=== PATIENT | female | born 1930 | race Caucasian/White ===

== ENCOUNTER 2017-05-23 13:54 | Outpatient (CLI) | payer SELFPAY ==
[~2017-05-23 13:54] MED LIST: ALLO100T PO; HYDR-565 PO; LEVO25TA2 PO; LISI10TA4 PO
== END 2017-05-23 23:59 | disposition home or self-care (01) ==
LOC: HW VAS 13:54
DX: Z00.00 Encounter for general adult medical examination without abnormal findings (principal)

== ENCOUNTER 2019-02-20 19:01 | Inpatient (IN) | payer MEDICARE, BC, MEDICAID ==
[~2019-02-20] VITALS: Ht 160 cm; Wt 81.0 kg
[~2019-02-20 19:01] MED LIST changes: +HYDR-4353 PO; -HYDR-565 PO
[2019-02-20 20:18] LABS: PARTIAL THROMBOPLASTIN TIME 31 SECONDS (22-32)
[2019-02-20 20:20] LABS: BASOPHILS % (AUTO) 0.2 % (0-1); EOSINOPHILS # (AUTO) 0.2 X10'3 (0-0.9); HEMATOCRIT 42.7 % (35.0-45.0); HEMOGLOBIN 14.4 g/dl (12.0-16.0); LYMPHOCYTES # (AUTO) 0.9 X10'3 (1.1-4.8); LYMPHOCYTES % (AUTO) 5.3 % (21-51); MEAN CORPUSCULAR HEMOGLOBIN 34.1 PG (27.0-31.0); MEAN CORPUSCULAR HGB CONC 33.8 g/dL (33.0-36.5); MEAN CORPUSCULAR VOLUME 100.7 FL (78-98); MONOCYTES # (AUTO) 1.3 X10'3 (0-0.9); MONOCYTES % (AUTO) 7.6 % (2-12); NEUTROPHILS # (AUTO) 14.5 X10'3 (1.8-7.7); NEUTROPHILS % (AUTO) 85.9 % (42-75); PLATELET COUNT 132 X10'3 (140-440); RED BLOOD COUNT 4.24 X10'6 (4.20-5.60); RED CELL DISTRIBUTION WIDTH 16.9 % (11.5-14.5); WHITE BLOOD COUNT 16.9 X10'3 (4.5-11.0)
[2019-02-20 20:21] LABS: ALANINE AMINOTRANSFERASE 53 U/L (12-78); ALBUMIN 1.9 G/DL (3.4-5.0); ALBUMIN/GLOBULIN RATIO 0.4 (1.1-1.5); ANION GAP 5 (8-16); ASPARTATE AMINO TRANSFERASE 185 U/L (10-37); BILIRUBIN,TOTAL 2.2 MG/DL (0.1-1.0); BLOOD UREA NITROGEN 13 MG/DL (7-18); BUN/CREATININE RATIO 17.6 (6.6-38.0); CALCIUM 11.5 MG/DL (8.5-10.1); CHLORIDE 99 MMOL/L (99-107); CREATININE 0.74 MG/DL (0.40-0.90); GLUCOSE 102 MG/DL (70-104); POTASSIUM 3.7 MMOL/L (3.5-5.1); SODIUM 134 MMOL/L (135-145); TOTAL CARBON DIOXIDE 29.8 MMOL/L (24-32); TOTAL PROTEIN 6.5 G/DL (6.4-8.2); eGFR 74 ML/MIN
[2019-02-20 20:23] LABS: ALKALINE PHOSPHATASE 441 IU/L (46-116)
[2019-02-20] MEDS ORDERED: normal saline 1000ML IV soln IVB ONE (22:30)
--- NOTE | 2019-02-20 22:45 | NUR ---
pt is resting quietly on gurney, resp even, shallow, unlabored, sales draining dark yellow urine
[2019-02-20] MEDS ORDERED: GABA-530 PO (23:40)
[2019-02-20] MEDS ORDERED: ALLO100T PO (23:40)
[2019-02-20] MEDS ORDERED: LISI-600 PO (23:40)
[2019-02-20] MEDS ORDERED: HYDR12.5 PO (23:40)
[2019-02-20] MEDS ORDERED: OMEP20TA23 PO (23:40)
[2019-02-20] MEDS ORDERED: HYDR-4383 PO (23:40)
[2019-02-20 23:42] LABS: CLARITY,URINE SLIGHTLY CLOUDY (Clear); COLOR,URINE AMBER (Yellow); GLUCOSE, URINE NEGATIVE (Neg); KETONES,URINE NEGATIVE (Neg); LEUKOCYTE ESTERASE ,URINE NEGATIVE (Neg); NITRITES, URINE NEGATIVE (Neg); OCCULT BLOOD,URINE NEGATIVE (Neg); PH,URINE 5.5 (4.8-8.0); PROTEIN,URINE NEGATIVE (Neg)
--- NOTE | 2019-02-20 23:44 | NUR ---
pt is resting quietly on gurney, waiting to be evaluated by hospitalist, pt is c/o of lower back pain
[2019-02-20 23:45] LABS: UA COLLECTION TYPE STRAIGHT CATH
[2019-02-21 00:29] LABS: BACTERIA,URINE FEW /HPF (Neg); MUCUS STRANDS FEW /LPF (Neg); RBC,URINE 0-2 /HPF (0-2); SQUAMOUS EPITHELIAL CELL,UR MODERATE /LPF (FEW); TRANSITIONAL EPI CELLS,URINE 4 /HPF; WBC,URINE 0-4 /HPF (0-4)
[2019-02-21] MEDS ORDERED: CefTRIAXone 2gm/D5W 50ml 50 ML IV ONE (00:40)
[2019-02-21] MEDS ORDERED: mag hydrox/Alum hydrox/simeth 30ml oral suspension PO PRN (01:25)
[2019-02-21] MEDS ORDERED: magnesium 2GM in 50ml NS 50 ML IV PRN (01:25)
[2019-02-21] MEDS ORDERED: acetaminophen 325mg tablet PO PRN (01:25)
[2019-02-21] MEDS ORDERED: magnesium hydroxide 30ml (MOM) UD suspension PO PRN (01:25)
[2019-02-21] MEDS ORDERED: morphine 2 MG/ML inj. syringe IV PRN (01:25)
[2019-02-21] MEDS ORDERED: magnesium 4gm in 100ml NS 100 ML IV PRN (01:25)
[2019-02-21] MEDS ORDERED: potassium CL 10mEq/100ml bag 100 ML IV PRN ×2 (01:25)
[2019-02-21] MEDS: normal saline 1000ml 1,000 ML IV SCH ×4 (01:42→21:20)
[2019-02-21] MEDS: ondansetron/PF 4mg/2ml inj IV PRN (01:48)
[2019-02-21] MEDS: morphine 2 MG/ML inj. syringe IV PRN ×4 (01:48→20:54)
[2019-02-21 03:00] VITALS: BP 121/45
[2019-02-21] MEDS: HYDROcodone/acetaminophen 5mg/325mg tablet PO PRN (03:28)
[2019-02-21 06:00] VITALS: BP 121/38
--- NOTE | 2019-02-21 06:19 | NUR ---
Problems reprioritized. Patient report given, questions answered & plan of care reviewed with HARJIT Dave.
--- NOTE | 2019-02-21 06:40 | NUR ---
Patient in room [facility]TH[facility] 4011. I have received report from Kiley Goss RN and had the opportunity to ask questions and assume patient care.
[2019-02-21] MEDS: furosemide 10 MG/1 ML 10ml inj IV SCH ×4 (07:19→20:07)
[2019-02-21] MEDS: gabapentin 100mg capsule PO SCH ×3 (07:20→23:47)
[2019-02-21] MEDS: levoTHYROXINE 25mcg tablet PO SCH (07:20)
[2019-02-21] MEDS: pantoprazole 40mg Tablet.DR PO SCH (07:20)
[2019-02-21] MEDS: lisinopril 20mg tablet PO SCH (07:20)
[2019-02-21] MEDS: heparin, porcine 5000 units/ml vial SQ SCH ×2 (07:21→20:05)
[2019-02-21] MEDS: K and/or MAG REPLACEMENT MC SCH (08:00)
[2019-02-21 10:00] VITALS: BP 115/41
[2019-02-21] MEDS ORDERED: azithromycin/NS 500mg/250ml 250 ML IV ONE (10:15)
[2019-02-21] MEDS: CefTRIAXone/D5W-Rocephin 1gm 50 ML IV SCH (10:27)
--- NOTE | 2019-02-21 13:14 | NUR ---
Malnutrition consult with note: Pt admit w/ weakness and hypercalcemia possibly r/t new onset METS per MD note. Pt seen by GENI and reports 10 pound wt loss past few months and has been dieting her whole life to try to keep wt down. Pt reports gaining wt easily and is okay w/ some wt loss. Pt appears well-nourished, no visible signs of muscle/fat wasting, no significant weakness note. PO 25% avg first meal this admit pending further PO hx. Pt lacks minimum 2 malnutrition criteria at this time. Will continue to monitor. Addendum: 02/21/19 at [address] Amended: Links added.
[2019-02-21 18:00] VITALS: BP 97/48
[2019-02-21 22:00] VITALS: BP 123/59
--- NOTE | 2019-02-22 06:17 | NUR ---
Problems reprioritized. Patient report given, questions answered & plan of care reviewed with HARJIT Mccurdy.
[2019-02-22 06:28] VITALS: BP_SYST 143; BP_DIAS 105; BP_DIAS 62
[2019-02-22] MEDS: CefTRIAXone/D5W-Rocephin 1gm 50 ML IV SCH (07:24)
[2019-02-22] MEDS: levoTHYROXINE 25mcg tablet PO SCH (07:25)
[2019-02-22] MEDS: furosemide 10 MG/1 ML 10ml inj IV SCH ×3 (07:25→21:00)
[2019-02-22] MEDS: pantoprazole 40mg Tablet.DR PO SCH (07:25)
[2019-02-22] MEDS: lisinopril 20mg tablet PO SCH (07:25)
[2019-02-22] MEDS: gabapentin 100mg capsule PO SCH ×3 (07:25→19:53)
[2019-02-22] MEDS: heparin, porcine 5000 units/ml vial SQ SCH ×2 (07:25→19:52)
[2019-02-22] MEDS: K and/or MAG REPLACEMENT MC SCH (07:26)
[2019-02-22] MEDS: normal saline 1000ml 1,000 ML IV SCH ×2 (07:26→16:28)
[2019-02-22 09:27] LABS: BASOPHILS # (AUTO) 0.1 X10'3 (0-0.2); BASOPHILS % (AUTO) 0.5 % (0-1); EOSINOPHILS # (AUTO) 0.2 X10'3 (0-0.9); HEMATOCRIT 43.5 % (35.0-45.0); HEMOGLOBIN 14.4 g/dl (12.0-16.0); LYMPHOCYTES # (AUTO) 0.8 X10'3 (1.1-4.8); LYMPHOCYTES % (AUTO) 4.8 % (21-51); MEAN CORPUSCULAR HEMOGLOBIN 33.7 PG (27.0-31.0); MEAN CORPUSCULAR HGB CONC 33.2 g/dL (33.0-36.5); MEAN CORPUSCULAR VOLUME 101.5 FL (78-98); MEAN PLATELET VOLUME 8.7 FL (7.4-10.4); MONOCYTES # (AUTO) 1.2 X10'3 (0-0.9); MONOCYTES % (AUTO) 7.2 % (2-12); NEUTROPHILS # (AUTO) 14.3 X10'3 (1.8-7.7); NEUTROPHILS % (AUTO) 86.5 % (42-75); PLATELET COUNT 137 X10'3 (140-440); RED BLOOD COUNT 4.29 X10'6 (4.20-5.60); RED CELL DISTRIBUTION WIDTH 16.8 % (11.5-14.5); WHITE BLOOD COUNT 16.6 X10'3 (4.5-11.0)
[2019-02-22 09:29] LABS: ALANINE AMINOTRANSFERASE 62 U/L (12-78); ALBUMIN 1.6 G/DL (3.4-5.0); ALBUMIN/GLOBULIN RATIO 0.4 (1.1-1.5); ALKALINE PHOSPHATASE 360 IU/L (46-116); ANION GAP 4 (8-16); ASPARTATE AMINO TRANSFERASE 255 U/L (10-37); BILIRUBIN,TOTAL 1.5 MG/DL (0.1-1.0); BLOOD UREA NITROGEN 20 MG/DL (7-18); BUN/CREATININE RATIO 23.5 (6.6-38.0); CALCIUM 10.2 MG/DL (8.5-10.1); CHLORIDE 102 MMOL/L (99-107); CREATININE 0.85 MG/DL (0.40-0.90); GLUCOSE 88 MG/DL (70-104); MAGNESIUM 1.6 MG/DL (1.5-2.4); POTASSIUM 3.7 MMOL/L (3.5-5.1); SODIUM 135 MMOL/L (135-145); TOTAL CARBON DIOXIDE 28.6 MMOL/L (24-32); TOTAL PROTEIN 6.1 G/DL (6.4-8.2); eGFR 63 ML/MIN
[2019-02-22 11:17] VITALS: BP 140/67
--- NOTE | 2019-02-22 14:36 | NUR ---
Stefan trigger: Stefan 12; skin intact. Addendum: 02/22/19 at [address] Amended: Links added.
[2019-02-22 17:00] VITALS: BP 146/62
--- NOTE | 2019-02-22 18:15 | NUR ---
Patient in room [facility]TH[facility] 4011. I have received report from Calli LOMBARDI and had the opportunity to ask questions and assume patient care.
[2019-02-22] MEDS: HYDROcodone/acetaminophen 5mg/325mg tablet PO PRN (19:53)
--- NOTE | 2019-02-22 20:49 | NUR ---
Paged Dr. Marquez MESSAGE: [phone] Roselyn Goff- pulled out IV, couldn't get one back in. IV Lasix ordered for 2100 and IV Rocephin in AM. Can we get PO Lasix for now and get PICC nurse to put IV in AM? Thank you, Kiah [phone]
[2019-02-22] MEDS ORDERED: furosemide 20MG tablet PO ONE (21:15)
[2019-02-22 21:30] VITALS: BP 108/40
[2019-02-22 21:31] VITALS: BP 106/43
[2019-02-22 21:32] VITALS: BP 117/40
--- NOTE | 2019-02-22 22:00 | NUR ---
physiotherapy aide said pt refused vital signs, saying "I'm comfortable in this position." Will continue to monitor.
--- NOTE | 2019-02-23 01:02 | NUR ---
Paged Dr Marquez MESSAGE: Pt [id number] Roselyn Goff: Pt has no IV, will be requesting PICC nurse to insert IV in AM. Can she have another PO pain med? Pt only has IV morphine and PO [place] 5; [place] 5 is not helping her with her chronic back pain. TY Kiah [phone] Jimmy ordered 10 mg oxycodone one time
[2019-02-23] MEDS ORDERED: oxyCODONE IR 5mg (immed. release) tablet PO ONE (01:10)
[2019-02-23] MEDS: normal saline 1000ml 1,000 ML IV SCH ×2 (03:20→13:20)
[2019-02-23] MEDS: HYDROcodone/acetaminophen 5mg/325mg tablet PO PRN ×2 (04:19→16:26)
[2019-02-23 06:00] VITALS: BP 118/39
--- NOTE | 2019-02-23 06:15 | NUR ---
Problems reprioritized. Patient report given, questions answered & plan of care reviewed with HARJIT Dupont.
[2019-02-23 06:26] LABS: BASOPHILS % (AUTO) 0.2 % (0-1); EOSINOPHILS # (AUTO) 0.1 X10'3 (0-0.9); EOSINOPHILS % (AUTO) 0.6 % (0-6); HEMATOCRIT 40.4 % (35.0-45.0); HEMOGLOBIN 13.5 g/dl (12.0-16.0); LYMPHOCYTES # (AUTO) 1.2 X10'3 (1.1-4.8); LYMPHOCYTES % (AUTO) 6.9 % (21-51); MEAN CORPUSCULAR HEMOGLOBIN 34.2 PG (27.0-31.0); MEAN CORPUSCULAR HGB CONC 33.5 g/dL (33.0-36.5); MEAN CORPUSCULAR VOLUME 102.2 FL (78-98); MEAN PLATELET VOLUME 8.7 FL (7.4-10.4); MONOCYTES # (AUTO) 1.5 X10'3 (0-0.9); MONOCYTES % (AUTO) 9.2 % (2-12); NEUTROPHILS % (AUTO) 83.1 % (42-75); PLATELET COUNT 116 X10'3 (140-440); RED BLOOD COUNT 3.96 X10'6 (4.20-5.60); RED CELL DISTRIBUTION WIDTH 16.7 % (11.5-14.5); WHITE BLOOD COUNT 16.8 X10'3 (4.5-11.0)
[2019-02-23 06:34] LABS: ALANINE AMINOTRANSFERASE 64 U/L (12-78); ALBUMIN 1.5 G/DL (3.4-5.0); ALBUMIN/GLOBULIN RATIO 0.4 (1.1-1.5); ALKALINE PHOSPHATASE 327 IU/L (46-116); ANION GAP 6 (8-16); ASPARTATE AMINO TRANSFERASE 276 U/L (10-37); BILIRUBIN,TOTAL 1.8 MG/DL (0.1-1.0); BLOOD UREA NITROGEN 22 MG/DL (7-18); BUN/CREATININE RATIO 27.8 (6.6-38.0); CALCIUM 9.8 MG/DL (8.5-10.1); CHLORIDE 105 MMOL/L (99-107); CREATININE 0.79 MG/DL (0.40-0.90); GLUCOSE 88 MG/DL (70-104); MAGNESIUM 1.5 MG/DL (1.5-2.4); POTASSIUM 3.7 MMOL/L (3.5-5.1); SODIUM 139 MMOL/L (135-145); TOTAL CARBON DIOXIDE 28.4 MMOL/L (24-32); TOTAL PROTEIN 5.7 G/DL (6.4-8.2); eGFR 69 ML/MIN
--- NOTE | 2019-02-23 06:35 | NUR ---
Problems reprioritized. Patient report given, questions answered & plan of care reviewed with Heavenly LOMBARDI.
[2019-02-23] MEDS: furosemide 10 MG/1 ML 10ml inj IV SCH ×3 (08:00→21:00)
[2019-02-23] MEDS: K and/or MAG REPLACEMENT MC SCH (08:00)
[2019-02-23] MEDS: CefTRIAXone/D5W-Rocephin 1gm 50 ML IV SCH (08:00)
[2019-02-23] MEDS: heparin, porcine 5000 units/ml vial SQ SCH ×2 (08:13→19:38)
[2019-02-23] MEDS: levoTHYROXINE 25mcg tablet PO SCH (08:14)
[2019-02-23] MEDS: lisinopril 20mg tablet PO SCH (08:15)
[2019-02-23] MEDS: pantoprazole 40mg Tablet.DR PO SCH (08:15)
[2019-02-23] MEDS: gabapentin 100mg capsule PO SCH ×2 (08:15→19:38)
--- NOTE | 2019-02-23 14:51 | NUR ---
PRESSURE ULCER EDUCATION: DEFINITION: A pressure ulcer is an area of skin that breaks down when you stay in one position too long. The constant pressure against the skin reduces the blood flow to that area and the affected tissue dies. CAUSES: "Being bedridden or in a wheelchair "Fragile skin "Having a chronic condition, such as diabetes or vascular disease "Inability to move certain parts of your body without assistance "Older age "Incontinence of urine or stool SYMPTOMS: "A reddened area that DOES NOT turn white when pressed on - this can be the beginning of a pressure ulcer "A blister, deep sore or a crater - these can be advanced pressure ulcers FIRST AID: "Relieve the pressure on this area "Keep the area clean and dry "Call your primary doctor if you see any of the above symptoms "DO NOT massage the area "DO NOT use a donut shaped or ring shaped pillow- these actually interfere with the blood flow and cause complications PREVENTION: "Check for pressure ulcers everyday "Change position at least every two hours to relieve pressure "Use items that help relieve pressure- pillows, sheepskin, foam padding, and powders. "Keep skin clean and dry "Eat healthy well balanced meals "Exercise daily IF YOU SEE ANY OF THESE SYMPTOMS WHILE IN THE HOSPITAL - TELL YOUR NURSE IMMEDIATELY. IF YOU SEE ANY OF THESE SYMPTOMS WHILE AT HOME OR HAVE ANY QUESTIONS OR CONCERNS ABOUT PRESSURE ULCERS - CALL YOUR PRIMARY DOCTOR IMMEDIATELY. Addendum: 02/23/19 at 1451 by María Elena Birmingham RN Amended: Links added.
[2019-02-23] MEDS: ondansetron/PF 4mg/2ml inj IV PRN (16:48)
--- NOTE | 2019-02-23 17:26 | NUR ---
RN request RD to see pt regarding easier to eat foods since pt very weak and needs help eating. Pt seen by GENI and agrees to finely chopped foods, soft to chew foods, gravy w/ meats, vanilla ensure pudding BIDLD, oatmeal and cottage and fruit w/ breakfasts; dietary notified. Addendum: 02/23/19 at [address] Amended: Links added.
[2019-02-23 18:00] VITALS: BP 142/51
--- NOTE | 2019-02-23 18:26 | NUR ---
Problems reprioritized. Patient report given, questions answered & plan of care reviewed with HARJIT Skinner.
[2019-02-23] MEDS: lactobacillus rhamnosus 10,000 MMU CELLS/CAPSULE PO SCH (19:38)
[2019-02-23] MEDS ORDERED: furosemide 20MG tablet PO ONE (21:25)
[2019-02-23 22:00] VITALS: BP 118/52
[2019-02-24] MEDS: normal saline 1000ml 1,000 ML IV SCH (01:06)
[2019-02-24 06:00] VITALS: BP 128/58
[2019-02-24 06:02] LABS: ALANINE AMINOTRANSFERASE 65 U/L (12-78); ALBUMIN 1.6 G/DL (3.4-5.0); ALBUMIN/GLOBULIN RATIO 0.4 (1.1-1.5); ALKALINE PHOSPHATASE 386 IU/L (46-116); ANION GAP 6 (8-16); ASPARTATE AMINO TRANSFERASE 255 U/L (10-37); BILIRUBIN,TOTAL 1.6 MG/DL (0.1-1.0); BLOOD UREA NITROGEN 22 MG/DL (7-18); BUN/CREATININE RATIO 26.8 (6.6-38.0); CALCIUM 10.3 MG/DL (8.5-10.1); CHLORIDE 103 MMOL/L (99-107); CREATININE 0.82 MG/DL (0.40-0.90); GLUCOSE 107 MG/DL (70-104); MAGNESIUM 1.5 MG/DL (1.5-2.4); POTASSIUM 3.2 MMOL/L (3.5-5.1); SODIUM 138 MMOL/L (135-145); TOTAL CARBON DIOXIDE 28.6 MMOL/L (24-32); eGFR 66 ML/MIN
--- NOTE | 2019-02-24 06:20 | NUR ---
Patient in room [facility]TH[facility] 4011. I have received report from and had the opportunity to ask questions and assume patient care HARJIT Skinner.
[2019-02-24 07:05] LABS: BASOPHILS # (AUTO) 0.1 X10'3 (0-0.2); BASOPHILS % (AUTO) 0.3 % (0-1); EOSINOPHILS # (AUTO) 0.2 X10'3 (0-0.9); EOSINOPHILS % (AUTO) 1.3 % (0-6); HEMATOCRIT 42.8 % (35.0-45.0); HEMOGLOBIN 14.2 g/dl (12.0-16.0); LYMPHOCYTES % (AUTO) 6.1 % (21-51); MEAN CORPUSCULAR HEMOGLOBIN 33.8 PG (27.0-31.0); MEAN CORPUSCULAR HGB CONC 33.3 g/dL (33.0-36.5); MEAN CORPUSCULAR VOLUME 101.6 FL (78-98); MEAN PLATELET VOLUME 9.3 FL (7.4-10.4); MONOCYTES # (AUTO) 1.6 X10'3 (0-0.9); MONOCYTES % (AUTO) 9.4 % (2-12); NEUTROPHILS % (AUTO) 82.9 % (42-75); PLATELET COUNT 125 X10'3 (140-440); RED BLOOD COUNT 4.21 X10'6 (4.20-5.60); RED CELL DISTRIBUTION WIDTH 16.9 % (11.5-14.5); WHITE BLOOD COUNT 16.9 X10'3 (4.5-11.0)
[2019-02-24] MEDS: lactobacillus rhamnosus 10,000 MMU CELLS/CAPSULE PO SCH (09:40)
[2019-02-24] MEDS: pantoprazole 40mg Tablet.DR PO SCH (09:40)
[2019-02-24 09:41] VITALS: BP_SYST 128
[2019-02-24] MEDS: levoTHYROXINE 25mcg tablet PO SCH (09:41)
[2019-02-24] MEDS: lisinopril 20mg tablet PO SCH (09:41)
[2019-02-24] MEDS: gabapentin 100mg capsule PO SCH (09:41)
[2019-02-24] MEDS: heparin, porcine 5000 units/ml vial SQ SCH (09:42)
[2019-02-24] MEDS ORDERED: CEFD300C3 PO (11:02)
--- NOTE | 2019-02-24 14:51 | NUR ---
DISCHARGE: pt DC home/hospice services being set up. All DC documents signed by pt/witness, copies sent w/pt. Hospice setting up home. son in law notified pt on way, Rx called into pharmacy. VSS, denies SOB, resp distress, N/V. Pt transferred safely from bed to gurney, escorted [place] by [employer] personnel. Pt thanked [facility] staff for her care.
== END 2019-02-24 14:25 | disposition hospice, home (50) | DRG 871 ==
LOC: ER 19:02 → ED HOLD 02-21 01:26 → ORTHO 4S 02-21 03:00
PROVIDERS: ADMIT Internal Medicine; ATTEND Hospitalist
DX: A41.9 Sepsis, unspecified organism (principal); J18.1 Lobar pneumonia, unspecified organism; C78.00 Secondary malignant neoplasm of unspecified lung; C78.7 Secondary malignant neoplasm of liver and intrahepatic bile duct; E86.0 Dehydration; G89.29 Other chronic pain; M19.90 Unspecified osteoarthritis, unspecified site; M54.9 Dorsalgia, unspecified; E83.52 Hypercalcemia; R62.7 Adult failure to thrive; W18.11XA Fall from or off toilet without subsequent striking against object, initial encounter; E03.9 Hypothyroidism, unspecified; Z66 Do not resuscitate; G62.9 Polyneuropathy, unspecified; I10 Essential (primary) hypertension; I71.2 Thoracic aortic aneurysm, without rupture; K21.9 Gastro-esophageal reflux disease without esophagitis; M10.9 Gout, unspecified; R29.6 Repeated falls; Z85.3 Personal history of malignant neoplasm of breast; Z90.12 Acquired absence of left breast and nipple; Z68.31 Body mass index [BMI] 31.0-31.9, adult; Y93.89 Activity, other specified; Y92.098 Other place in other non-institutional residence as the place of occurrence of the external cause; Y99.8 Other external cause status
CPT/HCPCS: 36415; 71045; 71250; 76937; 80053; 81001; 82330; 83605; 83735; 84145; 84439; 84443; 84484; 85025; 85610; 85730; 87040; 87081; 93005; 99285; G0378; J0456; J0696; J1644; J1940; J2270; J2405; J7030